=== PATIENT | female | born 1985 | race Caucasian/White ===

== ENCOUNTER 2016-12-11 09:21 | Emergency (ER) | payer MEDICAID, OTHER ==
[2016-12-11 09:47] VITALS: BMI 35.3
--- NOTE | 2016-12-11 09:47 | ED PDOC ---
Arrival/HPI - General Chief Complaint: Chest Pain Time Seen by Provider: 12/11/16 09:22 Historian: Patient - History of Present Illness Narrative History of Present Illness (Text): 12/11/16 09:44 31yr old female presents today with chest pain x 2 weeks. pt states she has been having on an off chest pain x 2 weeks but started again yesterday. pt describes pain as substernal, left sided, non radiating. c/o tingling in both hands. no fever/chills. pt denies uri symptoms. pt states she has hx of anxiety and was told it was anxiety two weeks ago but pt states since she smokes she is worried that it could be a blood clot. Time/Duration: > week (2weeks) Symptom Course: Intermittent Quality: Dullness Severity Level: 3 Past Medical History - Provider Review Nursing Documentation Reviewed: Yes - Travel History Have you recently traveled outside [place] w/in the past 3 mons?: No - Infectious Disease Hx of Infectious Diseases: None - Reproductive Menopause: No - Cardiac Hx Cardiac Disorders: No - Pulmonary Hx Respiratory Disorders: No - Neurological Hx Neurological Disorder: No - HEENT Hx HEENT Disorder: No - Renal Hx Renal Disorder: No - Endocrine/Metabolic Hx Endocrine Disorders: No - Hematological/Oncological Hx Blood Disorders: No - Integumentary Hx Dermatological Disorder: No - Musculoskeletal/Rheumatological Hx Musculoskeletal Disorders: No - Gastrointestinal Hx Gastrointestinal Disorders: No - Genitourinary/Gynecological Hx Genitourinary Disorders: No - Psychiatric Hx Psychophysiologic Disorder: Yes Hx Anxiety: Yes Hx Depression: Yes Hx Panic Disorder: Yes Hx Post Traumatic Stress Disorder: Yes Hx Substance Use: No - Surgical History Hx Tonsillectomy: Yes Other/Comment: Rhinoplasty - Anesthesia Hx Anesthesia: Yes Hx Anesthesia Reactions: No Family/Social History - Physician Review Nursing Documentation Reviewed: Yes Family/Social History: Unknown Family HX Smoking Status: Never Smoked Hx Alcohol Use: Yes Frequency of alcohol use: Socially Hx Substance Use: No Allergies/Home Meds Allergies/Adverse Reactions: Allergies No Known Allergies Allergy (Verified 12/11/16 09:30) Home Medications: Home Meds Medication Instructions Recorded Confirmed Alprazolam [Xanax] 0.5 mg PO PRN PRN 12/11/16 12/11/16 Venlafaxine [Effexor XR] 150 mg PO DAILY 12/11/16 12/11/16 traZODone [Desyrel] 100 mg PO HS 12/11/16 12/11/16 Review of Systems - Review of Systems Constitutional: absent: Fatigue, Fevers Respiratory: SOB. absent: Cough Cardiovascular: Chest Pain, Palpitations Gastrointestinal: absent: Abdominal Pain, Constipation, Diarrhea, Nausea, Vomiting Genitourinary Female: absent: Dysuria, Frequency, Hematuria Musculoskeletal: absent: Arthralgias, Back Pain, Neck Pain Skin: absent: Rash, Pruritis Neurological: absent: Headache, Dizziness Psychiatric: Anxiety. absent: Depression, Suicidal Ideation Physical Exam Vital Signs Reviewed: Yes Vital Signs Temp Pulse Pulse Resp BP BP Pulse Ox 12/11/16 11:06 89 18 108/69 97 12/11/16 09:30 90 106/70 12/11/16 09:21 98.5 F 90 19 106/70 97 Temperature: Afebrile Blood Pressure: Normal Pulse: Regular Respiratory Rate: Normal Appearance: Positive for: Well-Appearing, Non-Toxic, Comfortable Pain Distress: None Mental Status: Positive for: Alert and Oriented X 3, other (anxious) - Systems Exam Head: Present: Atraumatic Mouth: Present: Moist Mucous Membranes Respiratory/Chest: Present: Clear to Auscultation, Good Air Exchange. No: Respiratory Distress, Accessory Muscle Use Cardiovascular: Present: Regular Rate and Rhythm, Normal S1, S2. No: Murmurs Abdomen: No: Tenderness Lower Extremity: Present: Normal ROM Neurological: Present: GCS=15, Speech Normal Skin: Present: Warm, Dry, Normal Color. No: Rashes Psychiatric: Present: Alert, Oriented x 3 Medical Decision Making ED Course and Treatment: 12/11/16 09:48 pt with chest pain and SOB x 2 weeks. vitals stable pt smoker, on BC, will check d-dimer cbc; wbc; 11.2 cmp; wnl Trop; wnl Dimer; 0.63 ekg; normal sinus rhythm at 99 bpm normal axis normal intervals no ST elevations cxr: wnl Patient with elevated d-dimer. 0.[address] angiogram to rule out PE as patient has risk factors. ct angio PE protocol; FINDINGS: PULMONARY ARTERIES: Normal in caliber. No evidence of pulmonary embolism. AORTA: The aorta is normal in caliber. No thoracic aortic aneurysm or dissection. LUNGS: The lungs are well inflated and clear. There is no mass, nodule or consolidation. There is dependent atelectasis in the lower lobes. There are no endobronchial lesions. PLEURAL SPACES: There is no pneumothorax or pleural effusions. HEART: The heart is normal in size without pericardial effusion. LYMPH NODES: Subcentimeter axillary and mediastinal lymph nodes are likely reactive in etiology BONES, CHEST WALL: Within normal limits. No fracture or destructive lesion OTHER FINDINGS: Both adrenal glands are normal. The visualized upper abdomen is unremarkable. IMPRESSION: 1. No CT evidence for acute pulmonary embolism, aortic aneurysm or dissection. 2. Clear lungs. 12/11/16 11:30 pt reassessment; pt non toxic well appearing; no distress. stable vitals resting comfortably in er; tearful, appears anxious. pt relays that she has been under more stress than usual with the kids. states she is supposed to be taking xanax but hasn't has the money to fill the rx. speaking in full sentences. 100% room air. will given 0.25mg xanax po and d/c. I discussed all results in depth with patient; i advised f/u with pmd and veterans' counselor. advised return if symptoms worsen,persist or if new symptoms develop. impression; chest pain increase fluids Follow up with the primary care physician within the next 2 days Follow up with the veterans' counselor within the next 2 days. return immediately if symptoms worsen,persist or if new symptoms develop. - Lab Interpretations Lab Results: 12/11/16 09:49 12/11/16 09:49 Lab Results 12/11/16 09:49: WBC 11.2 H, RBC 4.47, Hgb 13.2, Hct 39.1, MCV 87.5, MCH 29.5, MCHC 33.8, RDW 14.3, Plt Count 295, MPV 10.1, Gran % 68.9 H, Lymph % (Auto) 22.4 , [place] % (Auto) 6.5 H, Eos % (Auto) 1.9, Baso % (Auto) 0.3, Gran # 7.69 H, Lymph # 2.5, [place] # 0.7 H, Eos # 0.2, Baso # 0.03 12/11/16 09:49: Sodium 140, Potassium 4.2, Chloride 105, Carbon Dioxide 27, Anion Gap 12, BUN 14, Creatinine 0.9, Est GFR ( Amer) > 60, Est GFR (Non- Af Amer) > 60, Random Glucose 97, Calcium 9.3, Total Bilirubin 0.5, AST 31, ALT 41, Alkaline Phosphatase 103, Total Protein 7.7, Albumin 4.3, Globulin 3.3, Albumin/Globulin Ratio 1.3, Lipase 63 12/11/16 09:49: Urine Color Yellow, Urine Appearance Clear, Urine pH 5.5, Ur Specific [place] >= 1.030, Urine Protein Trace H, Urine Glucose (UA) Negative, Urine Ketones Negative, Urine Blood Negative, Urine Nitrate Negative, Urine Bilirubin Negative, Urine Urobilinogen 1.0 H, Ur Leukocyte Esterase Negative, Urine RBC Negative, Urine WBC 2 - 5, Ur Epithelial Cells 3 - 4, Urine Bacteria Few 12/11/16 09:49: D-Dimer, Quantitative 0.63 H 12/11/16 09:30: Lactate Dehydrogenase 487, Total Creatine Kinase 129, Troponin I < 0.01 - RAD Interpretation Radiology Orders: 12/11/16 09:43 CHEST PORTABLE [RAD] Stat 12/11/16 10:19 ANGIO CHEST PE PROTOCOL [CT] Stat - Medication Orders Current Medication Orders: Discontinued Medications Iodixanol (Visipaque 320 Mg/Ml 100 Ml) Confirm Administered Dose 100 ml IV .ZingCheckout- [place] ONE Stop: 12/11/16 10:43 Disposition/Present on Arrival - Present on Arrival Any Indicators Present on Arrival: No History of DVT/PE: No History of Uncontrolled Diabetes: No Urinary Catheter: No History of Decub. Ulcer: No History Surgical Site Infection Following: None - Disposition Have Diagnosis and Disposition been Completed?: Yes Diagnosis: Chest pain Disposition: HOME/ ROUTINE Disposition Time: 11:33 Patient Plan: Discharge Patient Problems: Current Active Problems Problem Status Onset Chest pain Acute Condition: GOOD Discharge Instructions (ExitCare): Chest Pain (ED) Additional Instructions: Follow up with the primary care physician within the next 2 days Follow up with the veterans' counselor within the next 2 days. return immediately if symptoms worsen,persist or if new symptoms develop. Referrals: [facility] [Outside] - Follow up with primary Rachel Dunbar MD [Primary Care Provider] - Follow up with primary Simon Velasco MD [Staff Provider] - Follow up with primary Forms: WORK NOTE
[2016-12-11 09:52] LABS: ADD MANUAL DIFF? NO
[2016-12-11 09:54] LABS: BASO # 0.03 K/mm3 (0.0-2.0); BASO % 0.3 % (0.0-3.0); EOS # 0.2 (0.0-0.7); EOS % 1.9 % (1.5-5.0); GRAN # 7.69 (1.4-6.5); GRAN % 68.9 % (50.0-68.0); HEMATOCRIT 39.1 % (36.0-48.0); LYMPH # 2.5 (1.2-3.4); LYMPH % 22.4 % (22.0-35.0); MEAN CELL VOLUME 87.5 fL (80.0-105.0); MEAN CORPUSCULAR HEMOGLOBIN 29.5 pg (25.0-35.0); MEAN CORPUSCULAR HGB CONC 33.8 g/dl (31.0-37.0); MEAN PLATELET VOLUME 10.1 fl (7.0-11.0); MONO # 0.7 (0.1-0.6); MONO % 6.5 % (1.0-6.0); PLATELET COUNT 295 10^3/uL (120.0-450.0); RED CELL DISTRIBUTION WIDTH 14.3 % (11.5-14.5); WHITE BLOOD COUNT 11.2 10^3/ul (4.5-11.0)
[2016-12-11 09:55] VITALS: TEMP 98.5
[2016-12-11 09:55] LABS: PH,URINE 5.5 (4.7-8.0); URINE BILIRUBIN NEGATIVE (NEGATIVE); URINE BLOOD NEGATIVE (NEGATIVE); URINE GLUCOSE (UA) NEGATIVE (NEGATIVE); URINE KETONE NEGATIVE (NEGATIVE); URINE LEUKOCYTE ESTERASE NEGATIVE Leu/uL (NEGATIVE); URINE PROTEIN TRACE mg/dL (<30 mg/dL)
[2016-12-11 10:03] LABS: ALB/GLOB RATIO 1.3 (1.1-1.8); ALKALINE PHOSPHATASE 103 U/L (38-133); ALT/SGPT 41 U/L (7-56); AST/SGOT 31 U/L (15-39); BILIRUBIN,TOTAL 0.5 mg/dL (0.2-1.3); BLOOD UREA NITROGEN 14 mg/dL (7-21); CALCIUM 9.3 mg/dL (8.4-10.5); CARBON DIOXIDE 27 mmol/L (21-33); CHLORIDE 105 mmol/L (98-107); GFR AFRICAN-AMERICAN > 60; GLUCOSE,RANDOM 97 mg/dL (70-110); LIPASE 63 U/L (23-300); POTASSIUM 4.2 mmol/L (3.6-5.0); SODIUM 140 mmol/L (132-148); TOTAL PROTEIN 7.7 g/dL (5.8-8.3)
[2016-12-11 10:09] LABS: URINE APPEARANCE CLEAR (CLEAR); URINE COLOR YELLOW (YELLOW)
[2016-12-11 10:15] LABS: URINE BACTERIA FEW (NEG); URINE RBC NEGATIVE /hpf (0-2)
[2016-12-11] MEDS ORDERED: Iodixanol 320 MG/ML 100 ML BOTTLE IV ONE (10:42)
--- NOTE | 2016-12-11 11:03 | RAD ---
HISTORY: Chest pain COMPARISON: No prior. FINDINGS: LUNGS: The lungs are well inflated and clear. PLEURA: No significant pleural effusion identified, no pneumothorax apparent. CARDIOVASCULAR: Normal. OSSEOUS STRUCTURES: No significant abnormalities. VISUALIZED UPPER ABDOMEN: Normal. OTHER FINDINGS: None. IMPRESSION: No active pulmonary disease.
[2016-12-11 11:04] LABS: TROPONIN I < 0.01 ng/mL
--- NOTE | 2016-12-11 11:26 | CT ---
PROCEDURE: CT Chest with contrast (Pulmonary Angiogram) HISTORY: Chest pain and shortness of breath COMPARISON: Chest radiographs performed the same day TECHNIQUE: Axial computed tomography images were obtained of the chest in the pulmonary arterial phase of enhancement. Coronal and sagittal reformatted images were created and reviewed. Intravenous contrast dose: 100 mL Visipaque Radiation dose: Total exam DLP = 439.16 mGy-cm. This CT exam was performed using one or more of the following dose reduction techniques: Automated exposure control, adjustment of the mA and/or kV according to patient size, and/or use of iterative reconstruction technique. FINDINGS: PULMONARY ARTERIES: Normal in caliber. No evidence of pulmonary embolism. AORTA: The aorta is normal in caliber. No thoracic aortic aneurysm or dissection. LUNGS: The lungs are well inflated and clear. There is no mass, nodule or consolidation. There is dependent atelectasis in the lower lobes. There are no endobronchial lesions. PLEURAL SPACES: There is no pneumothorax or pleural effusions. HEART: The heart is normal in size without pericardial effusion. LYMPH NODES: Subcentimeter axillary and mediastinal lymph nodes are likely reactive in etiology BONES, CHEST WALL: Within normal limits. No fracture or destructive lesion OTHER FINDINGS: Both adrenal glands are normal. The visualized upper abdomen is unremarkable. IMPRESSION: 1. No CT evidence for acute pulmonary embolism, aortic aneurysm or dissection. 2. Clear lungs.
[2016-12-11 12:40] VITALS: BP 111/70; PULSE 81; RESP 17; O2SAT 98
--- NOTE | 2016-12-11 16:14 | CARD ---
APPROVED REPORT EKG Measurement Heart [id number] CO [id number] [id number] <Conclusion> Normal sinus rhythm Normal ECG
== END 2016-12-11 12:40 | disposition home or self-care (01) ==
LOC: ED 09:21
DX: R07.9 Chest pain, unspecified (principal)
CPT/HCPCS: 71010; 71275; 80053; 81001; 82550; 83615; 83690; 84484; 85025; 85378; 93005; 99285; Q9967